=== PATIENT | male | born 1935 | race Caucasian/White ===

== ENCOUNTER 2020-08-21 17:38 | Emergency (ER) | payer MEDICARE ==
[2020-08-21] MEDS ORDERED: HYDROmorphone 1 MG/ML Syringe IM ONE (17:56)
--- NOTE | 2020-08-21 18:08 | EDM.PDOC ---
ED HPI GENERAL MEDICAL PROBLEM - General Chief Complaint: Upper Extremity Injury/Pain Stated Complaint: R SHOULDER INJURY DUE TO FALL Time Seen by Provider: 08/21/20 18:30 Source of Information: Reports: Patient History Limitations: Reports: No Limitations - History of Present Illness INITIAL COMMENTS - FREE TEXT/NARRATIVE: This is an 84 year old male presenting after a mechanical fall. Patient reports that he tripped over a chair and fell a few feet off his deck, landing on his right arm and knee. He did not hit his head or lose consciousness. He is complaining of constant aching right humerus pain and right knee pain. he was able to bear weight and ambulate without difficulty after the fall, just painful. He denies neck pain, chest pain, SOB, abdominal pain, nausea, or vomiting at this time. Denies other injuries or pain. right upper arm and shoulder Pain Score (Numeric/FACES): 7 - Related Data Allergies Allergy/AdvReac Type Severity Reaction Status Date / Time No Known Allergies Allergy Verified 08/21/20 18:01 Home Meds: Home Meds Aspirin [Adult Low Dose Aspirin EC] 81 mg PO DAILY 08/21/20 [History] Ferrous Sulfate [Iron] 0 mg PO DAILY 08/21/20 [History] Losartan [Cozaar] 50 mg PO DAILY 08/21/20 [History] Omeprazole 20 mg PO DAILY 08/21/20 [History] Simvastatin 20 mg PO BEDTIME 08/21/20 [History] Spironolactone [Aldactone] 25 mg PO BID 08/21/20 [History] Review of Systems - Review of Systems Review Of Systems: Comprehensive ROS is negative, except as noted in HPI. ED EXAM, GENERAL - Physical Exam Exam: See Below Exam Limited By: No Limitations General Appearance: Alert, No Apparent Distress Head: Atraumatic, Normocephalic. No: Facial Swelling, Facial Tenderness Neck: Supple, Non-Tender, Full Range of Motion. No: Tender Lateral, Tender Midline Respiratory/Chest: No Respiratory Distress, Lungs Clear, Normal Breath Sounds, Chest Non-Tender Cardiovascular: Regular Rate, Rhythm GI/Abdominal: Soft, Non-Tender Extremities: Other (Right shoulder without deformity. no clavicle tenderness. Tender to palpation over mid and proximal right humerus. Right elbow is non- tender with normal ROM. Right knee with swelling and ecchymosis, diffusely tender to palpation with decreased flexion due to pain.) Neurological: Alert, Oriented, CN II-XII Intact, Normal Cognition, No Motor/Sensory Deficits Psychiatric: Normal Affect, Normal Mood Skin Exam: Warm, Dry, Intact, Ecchymosis (R Knee) Course - Vital Signs Last Recorded V/S: Last Vital Signs Temp 97.7 F 08/21/20 18:09 Pulse 68 08/21/20 18:09 Resp 18 08/21/20 18:09 BP 153/54 H 08/21/20 19:11 Pulse Ox 96 08/21/20 18:09 - Orders/Labs/Meds Orders: Active Orders 24 hr Category Date Time Status Humerus Rt [CR] Stat Exams 08/21/20 18:39 Taken Knee 3V Rt [CR] Stat Exams 08/21/20 18:40 Taken Meds: Medications Discontinued Medications Generic Name Dose Route Start Last Admin Trade Name Ciscoq PRN Reason Stop Dose Admin Hydromorphone HCl 1 mg 08/21/20 17:56 08/21/20 18:02 Hydromorphone 1 Mg/Ml Syringe IM 08/21/20 17:57 1 mg ONETIME ONE Administration Departure - Departure Time of Disposition: 20:43 Disposition: Home, Self-Care 01 Clinical Impression: Contusion of knee, right, Contusion, arm, upper - Discharge Information Instructions: Contusion Referrals: PCP,None [Primary Care Provider] - Forms: ED Department Discharge Additional Instructions: Apply ice to your knee and arm several times per day over the next 2-3 days. Use tylenol and/or ibuprofen for pain. Sepsis Event Note (ED) - Focused Exam Vital Signs: Vital Signs Temp Pulse Resp BP Pulse Ox 08/21/20 19:11 153/54 H 08/21/20 18:09 97.7 F 68 18 150/59 H 96 - Problem List Review Problem List Initiated/Reviewed/Updated: Yes - My Orders Last 24 Hours: My Active Orders 08/21/20 18:39 Humerus Rt [CR] Stat 08/21/20 18:40 Knee 3V Rt [CR] Stat - Assessment/Plan Last 24 Hours: My Active Orders 08/21/20 18:39 Humerus Rt [CR] Stat 08/21/20 18:40 Knee 3V Rt [CR] Stat Assessment:: This is an 84 year old male presenting after a mechanical fall. He did not hit his head or lose consciousness and there is no evidence of head trauma on exam. He has right humerus and right knee pain. x-rays were obtained of both the right knee and right humerus and there was no identifiable fracture or dislocation on preliminary review, but final radiology report was pending. The patient is able to ambulate and perform ROM of his shoulder, elbow, and knee. There is no other evidence of injury on exam at this time. The patient is appropriate for discharge home. I recommended ice and tylenol/ibuprofen. He should follow up with his primary care provider if not improving over the next week. Instructed to return to the ED for any new or worsening symptoms.
--- NOTE | 2020-08-23 11:01 | CR ---
Humerus Rt, Knee 3V Rt CLINICAL HISTORY: Fall FINDINGS: There is no acute fracture or dislocation in the right shoulder. Humerus appears intact. There is some moderate spurring at the AC joint. 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 There are no osseous lesions. There is severe joint space narrowing medial compartment. There is soft tissue calcification in the menisci. There is periarticular patellar spurring. Patient has a joint effusion Impression: Severe osteoarthritic change No acute fracture
== END 2020-08-21 21:46 | disposition home or self-care (01) ==
LOC: JP.ED 17:38
DX: S40.021A Contusion of right upper arm, initial encounter (principal); S80.01XA Contusion of right knee, initial encounter; Z79.899 Other long term (current) drug therapy; Z79.82 Long term (current) use of aspirin; W01.0XXA Fall on same level from slipping, tripping and stumbling without subsequent striking against object, initial encounter
CPT/HCPCS: 73060; 73562; 96372; 99283; J1170